=== PATIENT | male | born 1985 | race Caucasian/White ===

== ENCOUNTER 2017-11-17 16:27 | Emergency (ER) | payer SELFPAY ==
[~2017-11-17] VITALS: Ht 177.8 cm; Wt 90.7 kg
[2017-11-17] MEDS ORDERED: LAMO25TA (16:45)
[2017-11-17] MEDS ORDERED: ONDANSETRON 4 MG/2 ML (SDV) Z0FRAN IVP ONE (16:45)
[2017-11-17] MEDS ORDERED: NALT50TA (16:45)
[2017-11-17] MEDS ORDERED: BUSP10TA95 (16:45)
[2017-11-17 16:51] LABS: BASOPHILS % (AUTO) 0 % (0-10); EOSINOPHILS # (AUTO) 0.1 10^3/uL (0.0-0.3); EOSINOPHILS % (AUTO) 2 % (0-10); HEMATOCRIT 52 % (40-54); HEMOGLOBIN 18.6 G/DL (13.3-17.7); LYMPHOCYTES # (AUTO) 2.6 X 10^3 (1.0-4.0); LYMPHOCYTES % (AUTO) 39 % (12-44); MEAN CORPUSCULAR HEMOGLOBIN 33 PG (25-34); MEAN CORPUSCULAR HGB CONC 36 G/DL (32-36); MEAN CORPUSCULAR VOLUME 93 FL (80-99); MEAN PLATELET VOLUME 10.4 FL (7.4-10.4); MONOCYTES # (AUTO) 0.3 X 10^3 (0.0-1.0); MONOCYTES % (AUTO) 5 % (0-12); NEUTROPHILS # (AUTO) 3.6 X 10^3 (1.8-7.8); NEUTROPHILS % (AUTO) 54 % (42-75); PLATELET COUNT 192 10^3/uL (130-400); RED BLOOD COUNT 5.63 10^6/uL (4.35-5.85); RED CELL DISTRIBUTION WIDTH 13.4 % (10.0-14.5); WHITE BLOOD COUNT 6.7 10^3/uL (4.3-11.0)
[2017-11-17 17:04] LABS: BILIRUBIN,URINE NEGATIVE (NEGATIVE); CLARITY,URINE CLEAR; COLOR,URINE YELLOW; GLUCOSE, URINE (UA) NEGATIVE (NEGATIVE); KETONES,URINE NEGATIVE (NEGATIVE); LEUKOCYTE ESTERASE ,URINE NEGATIVE (NEGATIVE); NITRITE,URINE NEGATIVE (NEGATIVE); PH,URINE 6 (5-9); PROTEIN,URINE NEGATIVE (NEGATIVE); UROBILINOGEN,URINE NORMAL (NORMAL)
[2017-11-17 17:06] LABS: ALANINE AMINOTRANSFERASE 66 U/L (0-55); ALBUMIN 4.7 GM/DL (3.2-4.5); ALKALINE PHOSPHATASE 103 U/L (40-136); BUN/CREATININE RATIO 10; CALCIUM 8.8 MG/DL (8.5-10.1); CARBON DIOXIDE 22 MMOL/L (21-32); CHLORIDE 111 MMOL/L (98-107); GFR ESTIMATED > 60; GLUCOSE 125 MG/DL (70-105); LIPASE 22 U/L (8-78); POTASSIUM 3.6 MMOL/L (3.6-5.0); SODIUM 146 MMOL/L (135-145); TOTAL PROTEIN 8.4 GM/DL (6.4-8.2)
[2017-11-17 17:11] LABS: AMPHETAMINE SCREEN, URINE NEGATIVE (NEGATIVE); BARBITURATE SCREEN URINE NEGATIVE (NEGATIVE); BENZODIAZEPINES SCREEN URINE NEGATIVE (NEGATIVE); CANNABINOID SCREEN, URINE NEGATIVE (NEGATIVE); COCAINE SCREEN URINE NEGATIVE (NEGATIVE); METHADONE STAT NEGATIVE (NEGATIVE); METHAMPHETAMINE SCREEN URINE S NEGATIVE (NEGATIVE); OPIATE SCREEN URINE NEGATIVE (NEGATIVE); OXYCODONE STAT NEGATIVE (NEGATIVE); PROPOXYPHENE STAT NEGATIVE (NEGATIVE); TRICYCLIC ANTIDEPRESSANTS SCRE NEGATIVE (NEGATIVE)
[2017-11-17 17:19] LABS: BACTERIA,URINE NEGATIVE /HPF; WBC,URINE RARE /HPF
--- NOTE | 2017-11-17 17:55 | Diagnostic Imaging Report ---
INDICATION: Cough and congestion. COMPARISON: None. FINDINGS: Frontal and lateral views of the chest demonstrate clear lungs bilaterally. The heart is normal. No pneumothorax. Osseous structures are normal. IMPRESSION: Negative chest. Dictated by: Dictated on workstation # [id number]
--- NOTE | 2017-11-17 17:55 | Diagnostic Imaging Report ---
INDICATION: Right foot pain, trauma. COMPARISON: None. FINDINGS: Three views of the right foot demonstrate no fracture or dislocation. Articular surfaces are normal. There is no foreign body. IMPRESSION: Negative right foot. Dictated by: Dictated on workstation # [id number]
--- NOTE | 2017-11-17 17:58 | ED Psychosocial ---
General Chief Complaint: Substance Abuse Stated Complaint: SOA Nursing Triage Note: ARRIVED VIA EMS FROM HOME. FRIENDS CALLED EMS BECAUSE HE HAS NOT BEEN ACTING RIGHT. STATES HE DRANK A 1/2 PINT OF WHISKEY TODAY AND HAS NOT DRANK IN A MONTH. HIT A TREE WITH HIS RIGHT FIST AND IS HAVING PAIN. STATES HE HAS HAD A COUGH AND CHILLS. Source: patient Exam Limitations: no limitations History of Present Illness Time seen by provider: 16:20 Initial Comments This patient presents to the emergency room with history as above. He arrives via EMS. He has had some emotional issues due to family relations and alcohol intoxication today. He punched a tree and hit a post resulting in injury to his right hand and right foot. Patient also reports he has been feeling short of breath recently and has had productive cough. He reports headache and chills. There've been multiple sick exposures and his house including exposure to a young child who was admitted to the hospital for a respiratory illness. EMS states fingerstick blood sugar was 124. Patient is alert and oriented on arrival. Allergies and Home Medications Allergies Coded Allergies: No Known Drug Allergies (Unverified , 11/17/17) Home Medications Buspirone HCl 10 Mg Tablet, (Reported) Lamotrigine 25 Mg Tablet, (Reported) Naltrexone HCl 50 Mg Tablet, (Reported) Constitutional: see HPI EENTM: no symptoms reported Respiratory: see HPI Cardiovascular: no symptoms reported Gastrointestinal: nausea Genitourinary: no symptoms reported Musculoskeletal: see HPI Skin: see HPI Psychiatric/Neurological: See HPI Past Asooxtj-Gaxdav-Bgspcw Hx Patient Social History Alcohol Use: Occasionally Uses Alcohol Beverage of Choice: Whiskey Recreational Drug Use: No (DENIES) Smoking Status: Current Everyday Smoker Recent Foreign Travel: No Contact w/Someone Who Travel: No Recent Infectious Disease Expo: No Surgeries History of Surgeries: Yes Surgeries: Appendectomy Respiratory History of Respiratory Disorde: No Cardiovascular History of Cardiac Disorders: No Neurological History of Neurological Disord: No Genitourinary History of Genitourinary Disor: No Gastrointestinal History of Gastrointestinal Di: Yes Gastrointestinal Disorders: Gall Bladder Disease (with chronic pain) Musculoskeletal History of Musculoskeletal Dis: No Endocrine History of Endocrine Disorders: No HEENT History of HEENT Disorders: No Cancer History of Cancer: No Psychosocial History of Psychiatric Problem: Yes Behavioral Health Disorders: Bipolar, Schizophrenia, Depression Integumentary History of Skin or Integumenta: No Physical Exam Vital Signs Vital Sign - Last 12Hours 11/17/17 16:27 Temp 98.0 Pulse 118 Resp 18 B/P (MAP) 154/108 (123) Pulse Ox 91 O2 Delivery Room Air Capillary Refill : Less Than 3 Seconds General Appearance: WD/WN, mild distress, other (appears intoxicated but alert and oriented) HEENT: PERRL/EOMI, normal ENT inspection, TMs normal, pharynx normal Neck: normal inspection Respiratory: lungs clear, normal breath sounds, no respiratory distress, no accessory muscle use Cardiovascular: regular rate, rhythm, no edema, no murmur Gastrointestinal: normal bowel sounds, soft, tenderness (right upper quadrant stated as chronic) Extremities: no pedal edema, other (edema, ecchymosis, tenderness, and erythema to the right hand especially over the fourth and fifth metacarpals. Erythema and tenderness over the distal right foot. Normal range of motion) Neurologic/Psychiatric: medical care evaluation specialist II-XII nml as tested, no motor/sensory deficits, alert, oriented x 3, other (appears intoxicated) Appearance/Memory: disheveled Behavior/Eye Contact: cooperative, good eye contact, normal speech Thoughts/Hallucinations: no apparent hallucination Skin: normal color, warm/dry, ecchymosis (right hand and right foot) Progress/Results/Core Measures Results/Orders Lab Results Laboratory Tests Test 11/17/17 16:30 11/17/17 16:51 Range/Units White Blood Count 6.7 4.3-11.0 10^3/uL Red Blood Count 5.63 4.35-5.85 10^6/uL Hemoglobin 18.6 H 13.3-17.7 G/DL Hematocrit 52 40-54 % Mean Corpuscular Volume 93 80-99 FL Mean Corpuscular Hemoglobin 33 25-34 PG Mean Corpuscular Hemoglobin Concent 36 32-36 G/DL Red Cell Distribution Width 13.4 10.0-14.5 % Platelet Count 192 130-400 10^3/uL Mean Platelet Volume 10.4 7.4-10.4 FL Neutrophils (%) (Auto) 54 42-75 % Lymphocytes (%) (Auto) 39 12-44 % Monocytes (%) (Auto) 5 0-12 % Eosinophils (%) (Auto) 2 0-10 % Basophils (%) (Auto) 0 0-10 % Neutrophils # (Auto) 3.6 1.8-7.8 X 10^3 Lymphocytes # (Auto) 2.6 1.0-4.0 X 10^3 Monocytes # (Auto) 0.3 0.0-1.0 X 10^3 Eosinophils # (Auto) 0.1 0.0-0.3 10^3/uL Basophils # (Auto) 0.0 0.0-0.1 10^3/uL Sodium Level 146 H 135-145 MMOL/L Potassium Level 3.6 3.6-5.0 MMOL/L Chloride Level 111 H 98-107 MMOL/L Carbon Dioxide Level 22 21-32 MMOL/L Anion Gap 13 5-14 MMOL/L Blood Urea Nitrogen 8 7-18 MG/DL Creatinine 0.80 0.60-1.30 MG/DL Estimat Glomerular Filtration Rate > 60 BUN/Creatinine Ratio 10 Glucose Level 125 H 70-105 MG/DL Calcium Level 8.8 8.5-10.1 MG/DL Total Bilirubin 1.0 0.1-1.0 MG/DL Aspartate Amino Transf (AST/SGOT) 60 H 5-34 U/L Alanine Aminotransferase (ALT/SGPT) 66 H 0-55 U/L Alkaline Phosphatase 103 40-136 U/L C-Reactive Protein High Sensitivity 0.31 0.00-0.50 MG/DL Total Protein 8.4 H 6.4-8.2 GM/DL Albumin 4.7 H 3.2-4.5 GM/DL Lipase 22 8-78 U/L Serum Alcohol 299 H <10 MG/DL Urine Color YELLOW Urine Clarity CLEAR Urine pH 6 5-9 Urine Specific [place] 1.010 L 1.016-1.022 Urine Protein NEGATIVE NEGATIVE Urine Glucose (UA) NEGATIVE NEGATIVE Urine Ketones NEGATIVE NEGATIVE Urine Nitrite NEGATIVE NEGATIVE Urine Bilirubin NEGATIVE NEGATIVE Urine Urobilinogen NORMAL NORMAL MG/DL Urine Leukocyte Esterase NEGATIVE NEGATIVE Urine RBC (Auto) NEGATIVE NEGATIVE Urine RBC NONE /HPF Urine WBC RARE /HPF Urine Crystals NONE /LPF Urine Bacteria NEGATIVE /HPF Urine Casts NONE /LPF Urine Mucus NEGATIVE /LPF Urine Culture Indicated NO Urine Opiates Screen NEGATIVE NEGATIVE Urine Oxycodone Screen NEGATIVE NEGATIVE Urine Methadone Screen NEGATIVE NEGATIVE Urine Propoxyphene Screen NEGATIVE NEGATIVE Urine Barbiturates Screen NEGATIVE NEGATIVE Ur Tricyclic Antidepressants Screen NEGATIVE NEGATIVE Urine Phencyclidine Screen NEGATIVE NEGATIVE Urine Amphetamines Screen NEGATIVE NEGATIVE Urine Methamphetamines Screen NEGATIVE NEGATIVE Urine Benzodiazepines Screen NEGATIVE NEGATIVE Urine Cocaine Screen NEGATIVE NEGATIVE Urine Cannabinoids Screen NEGATIVE NEGATIVE Micro Results Microbiology 11/17/17 Influenza Types A,B Antigen (SHIV) - Final, Complete My Orders Orders - RADHA MONTIEL MD Alcohol (11/17/17 16:40) Cbc With Automated Diff (11/17/17 16:40) Comprehensive Metabolic Panel (11/17/17 16:40) Hs C Reactive Protein (11/17/17 16:40) Drug Screen Stat (Urine) (11/17/17 16:40) Lipase (11/17/17 16:40) Ua Culture If Indicated (11/17/17 16:40) Influenza A And B Antigens (11/17/17 16:40) Chest Pa/Lat (2 View) (11/17/17 16:40) Ondansetron Injection (Zofran Injectio (11/17/17 16:45) Hand, Right, 3 Views (11/17/17 16:40) Foot, Right, 3 View (11/17/17 17:02) Ketorolac Injection (Toradol Injection) (11/17/17 18:15) Medications Given in ED Vital Signs/I&O Intake and Output 11/18/17 00:00 Intake Total 1000 ml Balance 1000 ml Blood Pressure Mean: 123 Progress Note : Progress Note Patient received IV fluids as started by EMS. X-rays of the chest, hand, and foot were all negative. Labs were unremarkable. Influenza screen was negative. Transaminases were mildly elevated which patient was aware of. He has known gallbladder disease. Diagnostic Imaging Diagonstic Imaging: Xray Plain Films/CT/US/NM/MRI: other (Right foot) Comments Right foot x-ray viewed by me and report reviewed. See report below: NAME: JUSTINE ZARATE [facility] REC#: [id number] PT STATUS: REG ER : 1985 PHYSICIAN: RADHA MONTIEL MD ADMIT DATE: 11/17/17/ER Signed Date of Exam: 11/17/17 FOOT, RIGHT, 3 VIEW INDICATION: Right foot pain, trauma. COMPARISON: None. FINDINGS: Three views of the right foot demonstrate no fracture or dislocation. Articular surfaces are normal. There is no foreign body. IMPRESSION: Negative right foot. Dictated by: Dictated on workstation # [id number] Dict: 11/17/171726 Trans: 11/17/171754 Interpreted by: MELINDA YANG Electronically signed by: MELINDA YANG 11/17/171754 Diagonstic Imaging: Xray Plain Films/CT/US/NM/MRI: hand Comments Right hand x-ray viewed by me and report reviewed. See report below: NAME: JUSTINE ZARATE [facility] REC#: [id number] PT STATUS: REG ER : 1985 PHYSICIAN: RADHA MONTIEL MD ADMIT DATE: 11/17/17/ER Signed Date of Exam: 11/17/17 HAND, RIGHT, 3 VIEWS INDICATION: Right hand trauma, pain and swelling. COMPARISON: None. FINDINGS: Three views of the right hand demonstrate no fracture or dislocation. Questionable chronic fracture deformity seen involving the fifth metacarpal. Articular surfaces are normal. No osseous lesion or foreign body. IMPRESSION: Negative right hand. Dictated by: Dictated on workstation # [id number] Dict: 11/17/171726 Trans: 11/17/171758 Interpreted by: MELINDA YANG Electronically signed by: MELINDA YANG 11/17/171758 Diagonstic Imaging: Xray Plain Films/CT/US/NM/MRI: chest Comments Chest x-ray viewed by me and report reviewed. See report below: NAME: JUSTINE ZARATE [facility] REC#: [id number] PT STATUS: REG ER : 1985 PHYSICIAN: RADHA MONTIEL MD ADMIT DATE: 11/17/17/ER Signed Date of Exam: 11/17/17 CHEST PA/LAT (2 VIEW) INDICATION: Cough and congestion. COMPARISON: None. FINDINGS: Frontal and lateral views of the chest demonstrate clear lungs bilaterally. The heart is normal. No pneumothorax. Osseous structures are normal. IMPRESSION: Negative chest. Dictated by: Dictated on workstation # [id number] Dict: 11/17/17 1726 Trans: 11/17/171754 Interpreted by: MELINDA YANG Electronically signed by: MELINDA YANG 11/17/171754 Departure Impression Impression: Primary Impression: Alcohol intoxication Qualified Codes: F10.929 - Alcohol use, unspecified with intoxication, unspecified Additional Impressions: Contusion of right hand Qualified Codes: S60.221A - Contusion of right hand, initial encounter Contusion of right foot Qualified Codes: S90.31XA - Contusion of right foot, initial encounter Upper respiratory infection Qualified Codes: J06.9 - Acute upper respiratory infection, unspecified Disposition: 01 HOME, SELF-CARE Condition: Improved Departure-Patient Inst. Decision time for Depature: 18:00 Referrals: LAWANDA GHOTRA MD (PCP/Family) Primary Care Physician Patient Instructions: ALCOHOL AND SUBSTANCE ABUSE, Contusion (DC) Add. Discharge Instructions: Rest, icing in 20 minute intervals, and elevation should help with pain and swelling. You may take ibuprofen up to 800 mg every 8 hours as needed for pain. Add Tylenol (acetaminophen) up to 1000 mg every 6 hours as needed for additional pain relief. Follow-up with your primary care provider and behavioral health provider as soon as possible. Please return to the emergency room if symptoms worsen. Drink plenty of clear liquids. Continue taking your medications as prescribed. All discharge instructions reviewed with patient and/or family. Voiced understanding. Copy Copies To 1: LAWANDA GHOTRA MD, JOSHUA T MD Nov 17, 2017 17:58
[2017-11-17 18:08] VITALS: BP 124/90
[2017-11-17] MEDS ORDERED: KETOROLAC 30 MG/ML VIAL IVP ONE (18:15)
== END 2017-11-17 18:08 | disposition home or self-care (01) ==
LOC: ER 16:28
DX: S60.221A Contusion of right hand, initial encounter (principal); S90.31XA Contusion of right foot, initial encounter; J06.9 Acute upper respiratory infection, unspecified; F31.9 Bipolar disorder, unspecified; F20.9 Schizophrenia, unspecified; F10.129 Alcohol abuse with intoxication, unspecified; F17.210 Nicotine dependence, cigarettes, uncomplicated; Z90.49 Acquired absence of other specified parts of digestive tract; X83.8XXA Intentional self-harm by other specified means, initial encounter
CPT/HCPCS: 36415; 71046; 73130; 73630; 80053; 80306; 80320; 81000; 83690; 85025; 86141; 87804; 99283

== ENCOUNTER 2017-12-28 10:17 | Emergency (ER) | payer SELFPAY ==
[~2017-12-28] VITALS: Ht 177.8 cm; Wt 90.7 kg
[~2017-12-28 10:17] MED LIST: BUSP10TA95; LAMO25TA; NALT50TA
[2017-12-28] MEDS ORDERED: LACTATED RINGERS 1,000 ML IV ONE (10:35)
[2017-12-28] MEDS ORDERED: fentaNYL INJECTION 100 MCG/2 ML AMP IVP ONE (10:45)
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
[2017-12-28] MEDS ORDERED: NS 250 ML (IVPB) BAG IV ONE (11:00)
[2017-12-28] MEDS ORDERED: IOHEXOL 350 MG/ML 100 ML (OMNIPAQUE 350) VIAL IV ONE (11:00)
[2017-12-28 11:05] LABS: BASOPHILS % (AUTO) 0 % (0-10); EOSINOPHILS # (AUTO) 0.1 10^3/uL (0.0-0.3); EOSINOPHILS % (AUTO) 3 % (0-10); HEMATOCRIT 48 % (40-54); HEMOGLOBIN 17.6 G/DL (13.3-17.7); LYMPHOCYTES # (AUTO) 1.7 X 10^3 (1.0-4.0); LYMPHOCYTES % (AUTO) 35 % (12-44); MEAN CORPUSCULAR HEMOGLOBIN 34 PG (25-34); MEAN CORPUSCULAR HGB CONC 37 G/DL (32-36); MEAN CORPUSCULAR VOLUME 91 FL (80-99); MEAN PLATELET VOLUME 10.2 FL (7.4-10.4); MONOCYTES # (AUTO) 0.4 X 10^3 (0.0-1.0); MONOCYTES % (AUTO) 8 % (0-12); NEUTROPHILS # (AUTO) 2.7 X 10^3 (1.8-7.8); NEUTROPHILS % (AUTO) 55 % (42-75); PLATELET COUNT 141 10^3/uL (130-400); RED BLOOD COUNT 5.24 10^6/uL (4.35-5.85); RED CELL DISTRIBUTION WIDTH 12.9 % (10.0-14.5); WHITE BLOOD COUNT 4.9 10^3/uL (4.3-11.0)
[2017-12-28] MEDS ORDERED: KETOROLAC 30 MG/ML VIAL ONE (11:21)
[2017-12-28 11:25] LABS: ALANINE AMINOTRANSFERASE 95 U/L (0-55); ALBUMIN 4.1 GM/DL (3.2-4.5); ALKALINE PHOSPHATASE 102 U/L (40-136); BILIRUBIN,TOTAL 1.9 MG/DL (0.1-1.0); BUN/CREATININE RATIO 7; CALCIUM 8.9 MG/DL (8.5-10.1); CARBON DIOXIDE 25 MMOL/L (21-32); CHLORIDE 104 MMOL/L (98-107); CREATININE SERUM 0.81 MG/DL (0.60-1.30); GFR ESTIMATED > 60; GLUCOSE 108 MG/DL (70-105); LIPASE 24 U/L (8-78); MAGNESIUM 1.8 MG/DL (1.8-2.4); POTASSIUM 3.2 MMOL/L (3.6-5.0); SODIUM 142 MMOL/L (135-145); TOTAL PROTEIN 7.8 GM/DL (6.4-8.2)
[2017-12-28 11:30] LABS: BILIRUBIN,URINE NEGATIVE (NEGATIVE); CLARITY,URINE CLEAR; COLOR,URINE YELLOW; GLUCOSE, URINE (UA) NEGATIVE (NEGATIVE); KETONES,URINE NEGATIVE (NEGATIVE); LEUKOCYTE ESTERASE ,URINE NEGATIVE (NEGATIVE); NITRITE,URINE NEGATIVE (NEGATIVE); PH,URINE 8 (5-9); PROTEIN,URINE NEGATIVE (NEGATIVE); UROBILINOGEN,URINE 1 MG/DL (NORMAL)
[2017-12-28] MEDS ORDERED: KETOROLAC 30 MG/ML VIAL IVP ONE (11:30)
--- NOTE | 2017-12-28 11:31 | Diagnostic Imaging Report ---
PROCEDURE: CT abdomen and pelvis with contrast. TECHNIQUE: Multiple contiguous axial images were obtained through the abdomen and pelvis after administration of intravenous contrast. INDICATION: Right-sided pain accompanied by nausea, symptoms of one-month duration, previous appendectomy. I have no priors There is a moderate retrocardiac hiatal hernia. There is a trace atelectasis in the lingular segment left upper lobe at the left base anteroinferiorly. There is a moderate degree of hepatic steatosis. There is no opaque stone, gallstone and there is no pathological bile duct dilatation. The pancreas and peripancreatic fat appeared normal. The kidneys are unobstructed well-perfused and nonfocal. The adrenals and spleen negative. There is no mesenteric or retroperitoneal adenopathy. There is no ascites, abscess, hematoma or other fluid collection. The urinary bladder appeared unremarkable. The appendix is surgically absent. There is some low-density thickening of the todd of the colon throughout its length. There was no substantial or pericolonic edema. There is no evidence for abscess. There is no focal diverticulitis. Findings however raise the question of mild nonspecific colitis. There is some fluid within the small bowel without mucosal hyperemia or small bowel wall thickening. IMPRESSION: Findings raising the question of mild pancolitis. This is an admittedly borderline finding as the bowel was nondistended and can artifactually increase the measured thickness of its todd. There is no pericolonic edema evident. There is no evidence for bowel, biliary or urinary tract obstruction. No fluid collection. Fatty liver without acute pancreatic abnormality or bile duct dilatation. Dictated by: Dictated on workstation # [id number]
[2017-12-28 11:43] LABS: BACTERIA,URINE NEGATIVE /HPF; SQUAMOUS EPITHELIAL CELL,UR RARE /HPF
--- NOTE | 2017-12-28 11:44 | Diagnostic Imaging Report ---
INDICATION: Abdominal pain. COMPARISON: 11/17/2007. FINDINGS: The lungs are clear. The heart and vessels are normal. There is no effusion or pneumothorax. No free air beneath the diaphragms. IMPRESSION: Negative. Dictated by: Dictated on workstation # [id number]
[2017-12-28] MEDS ORDERED: ONDA4TAB11 PO (11:56)
[2017-12-28] MEDS ORDERED: KETO10TA PO (11:56)
[2017-12-28] MEDS ORDERED: CIPR500T4 PO (11:56)
[2017-12-28 12:15] VITALS: BP 128/108
== END 2017-12-28 12:15 | disposition home or self-care (01) ==
LOC: EDUNIT# 10:17 → ER 10:19
DX: K52.9 Noninfective gastroenteritis and colitis, unspecified (principal); F31.9 Bipolar disorder, unspecified; F20.9 Schizophrenia, unspecified; F17.200 Nicotine dependence, unspecified, uncomplicated; Z90.49 Acquired absence of other specified parts of digestive tract; Z87.448 Personal history of other diseases of urinary system
CPT/HCPCS: 36415; 71045; 74177; 80053; 81000; 83690; 83735; 85025; 86141; 96361; 96374; 96375